=== PATIENT | female | born 1940 | race Caucasian/White ===

== ENCOUNTER → 2018-03-12 10:41 | Outpatient (CLI) | payer MEDICARE, BC, SELFPAY ==
--- NOTE | 2018-03-12 10:59 | DI.MG.S_ITS ---
Patient Name: TORI HEREDIA date: 1940 Sex: F Attending Physician: Gerard Indications: Date: 03/12/2018 10:59 At the request of: APRYL BEAR Procedure: MM screening mammo BI BILATERAL DIGITAL SCREENING MAMMOGRAM 3D/2D WITH CAD POST LUMPECTOMY: 03/12/2018 CLINICAL: Routine screening. Personal history of left breast cancer. Family history of breast cancer. Comparison is made to exams dated: 03/09/2017 mammogram, 02/23/2015 mammogram, and 02/25/2016 mammogram - [facility]. There are scattered fibroglandular elements in both breasts. Current study was also evaluated with a Computer Aided Detection (CAD) system. There are benign calcifications in both breasts. There also are post operative findings in the left breast. There is a linear scar marker overlying the upper outer left breast. No significant masses, calcifications, or other findings are seen in either breast. IMPRESSION: BENIGN There is no mammographic evidence of malignancy. A 1 year screening mammogram is recommended. This exam was interpreted at Station ID: [id number]. NOTE: For mammograms, a report in lay terms will be sent to the patient. Approximately 15% of breast malignancies will not be visualized mammographically. In the management of a palpable breast mass, a negative mammogram must not discourage biopsy of a clinically suspicious lesion. Electronically Signed By: Scott Morton M.D. ecl/:03/12/2018 20:46:44 letter sent: Normal Exam ACR BI-RADS Category 2: Benign Finding(s) 3342F
== END ==
PROVIDERS: PCP Physician Assistant Medical; Visit Provider Physician Assistant Medical
DX: Z12.31 Encounter for screening mammogram for malignant neoplasm of breast (principal); Z85.3 Personal history of malignant neoplasm of breast; Z80.3 Family history of malignant neoplasm of breast
CPT/HCPCS: 77063; 77067

== ENCOUNTER → 2019-03-13 09:12 | Outpatient (CLI) | payer MEDICARE, BC, SELFPAY ==
--- NOTE | 2019-03-13 | DI.MG.S_ITS ---
BILATERAL DIGITAL SCREENING MAMMOGRAM 3D/2D WITH CAD: 03/13/2019 CLINICAL: Routine screening. Personal history of left breast cancer. Family history of breast cancer. Comparison is made to exams dated: 03/12/2018 mammogram, 03/09/2017 mammogram, and 03/08/2016 mammogram - [facility]. The tissue of both breasts is heterogeneously dense. This may lower the sensitivity of mammography. Current study was also evaluated with a Computer Aided Detection (CAD) system. There are benign post operative findings in the left breast. There also are benign calcifications and lymph nodes in both breasts. No significant masses, calcifications, or other findings are seen in either breast. There has been no significant interval change. IMPRESSION: There is no mammographic evidence of malignancy. A 1 year screening mammogram is recommended. This exam was interpreted at Station ID: [id number]. NOTE: For mammograms, a report in lay terms will be sent to the patient. Approximately 15% of breast malignancies will not be visualized mammographically. In the management of a palpable breast mass, a negative mammogram must not discourage biopsy of a clinically suspicious lesion. Electronically Signed By: Ramsey das/thuy:03/13/2019 10:59:44 letter sent: Normal Exam ACR BI-RADS Category 2: Benign Finding(s) 3342F
== END ==
PROVIDERS: PCP Physician Assistant Medical; Visit Provider Physician Assistant Medical
DX: Z12.31 Encounter for screening mammogram for malignant neoplasm of breast (principal); Z85.3 Personal history of malignant neoplasm of breast; Z80.3 Family history of malignant neoplasm of breast
CPT/HCPCS: 77063; 77067

== ENCOUNTER 2020-04-02 16:55 | Emergency (ER) | payer MEDICARE, BC, SELFPAY ==
[2020-04-02] VITALS (19 sets, daily range): BP systolic 100–187; BP diastolic 72–96; PULSE 64–75; RESP 20–45; TEMP 37.1–37.2; O2SAT 93–98; BMI 29.1
--- NOTE | 2020-04-02 17:23 | DI.RAD.S_ITS ---
PROCEDURE: XR CHEST 1V INDICATIONS: SOB TECHNIQUE: One view of the chest was acquired. COMPARISON: None. FINDINGS: Surgical changes and devices: Left axillary surgical clips.. Lungs and pleura: Lungs are clear. No pleural effusions or pneumothorax. Mediastinum: Mediastinal contours appear normal. Heart size is normal. Bones and chest wall: No suspicious bony lesions. Overlying soft tissues appear unremarkable. IMPRESSION: No acute cardiopulmonary disease process. Dictated by: Alyssa Kennedy MD, PhD on 04/02/2020 at 17:50 Approved by: Alyssa Kennedy MD, PhD on 04/02/2020 at 17:51
--- NOTE | 2020-04-02 17:23 | ED.SOB ---
HPI - SOB/Dyspnea <NEY Noland - Last Filed: 04/02/20 20:52> General Chief Complaint: Shortness of Breath/Dyspnea Stated Complaint: SOB with Exertion Time Seen by Provider: 04/02/20 17:05 History of Present Illness HPI Narrative: 79yo female presents to the emergency department for ongoing dyspnea with exertion for the past 6 weeks. She states she walks the dog daily and noticed that she started to get increasing shortness of breath while walking. She was seen and evaluated by MARY Gee in sent to the emergency department for further workup due to T-wave inversion on EKG an oxygen saturation of 94% on RA in the clinic. Patient denies any history of cardiac or pulmonary etiology, denies blood clots in the past. Patient denies any other symptoms such as fevers, chest pain, abdominal pain, dizziness, syncope, nausea, vomiting, diarrhea, or any other concerns. Patient states she did smoke 25 years ago. Related Data Home Medications Medication Instructions Recorded Confirmed ASPIRIN (Linda Chewable Aspirin) 81 mg PO #0 05/30/12 CHOLECALCIFEROL (VITAMIN D) #0 05/30/12 CHOLECALCIFEROL (VITAMIN D) 2,000 iu PO Q DAY #0 05/30/12 CYANOCOBALAMIN (VITAMIN B-12) 1,000 mcg PO Q DAY #0 05/30/12 (Vitamin B-12) MAGNESIUM (#[facility] MAGNESIUM) 1,200 mg PO Q DAY #0 05/30/12 POTASSIUM (#POTASSIUM GLUCONATE) 80 mg PO Q DAY #0 05/30/12 Pyridoxine (#VITAMIN B6) 100 mg PO Q DAY #0 05/30/12 [FISH OIL] BID #0 05/30/12 [Super B complex] Q DAY #0 05/30/12 ascorbic acid (vitamin C) 500 mg PO QDAY #0 05/30/12 ascorbic acid (vitamin C) 500 mg PO QDAY #0 05/30/12 ascorbic acid (vitamin C) 500 mg PO QDAY #0 05/30/12 calcium carbonate-vitamin D3 800 mg PO 0800 #0 05/30/12 [Oyster Shell Calcium-Vit D3] Review of Systems <NEY Noland - Last Filed: 04/02/20 20:52> Review of Systems Narrative: REVIEW OF SYSTEMS: GENERAL: Denies fevers. HENT: No head trauma or hearing loss. EYES: No vision changes. CARDIOVASCULAR: No chest pain. RESPIRATORY: Reports shortness of breath, no cough. GASTROINTESTINAL: No nausea, vomiting, diarrhea, or constipation. MUSCULOSKELETAL: No weakness or injury. INTEGUMENTARY: No rash, lesions, or pruritus. NEURO: No memory loss, or confusion. Patient History <NEY Noland - Last Filed: 04/02/20 20:52> Medical History No significant medical problems (Acute) Social History Smoking Status: Never smoker Exam <NEY Noland - Last Filed: 04/02/20 20:52> Initial Vital Signs Initial Vital Signs: Vital Signs Temperature 98.7 F 04/02/20 17:08 Pulse Rate 69 04/02/20 17:08 Respiratory Rate 32 H 04/02/20 17:08 Blood Pressure 181/96 H 04/02/20 17:08 Pulse Oximetry 97 04/02/20 17:08 PHYSICAL EXAMINATION: GENERAL: Well groomed, alert, and cooperative. Answers questions promptly and appropriately. Vital signs noted. HENT: Normocephalic, atraumatic. Ear canals patent. Oral mucosa is pink and moist. EYES: Conjunctiva pink, sclera white, no periorbital swelling. CHEST: Normal to inspection and without deformities. CARDIOVASCULAR: S1 and S2 sounds normal. Regular rate and rhythm, no murmurs, clicks, or bruits. No pedal edema. RESPIRATORY: Normal respiratory rate, trachea midline, airway patent. No stridor, nasal flaring or accessory muscle use. Lungs are clear in all eisenberg without wheeze, rhonchi, or crackles. GASTROINTESTINAL: Bowel sounds normoactive. Abdomen is soft and non-tender. No organomegaly. MUSCULOSKELETAL: Normal gait and coordination. Equal tone and mass bilaterally. EXTREMITIES: CMS intact. Moves all extremities. SKIN: Warm, dry, soft, appropriate color for ethnicity. No lesions, rashes, or wounds. NEURO: Alert and Oriented X 3. Good coordination. No ataxia, or sensory deficits, or cognitive issues. PSYCH: Appropriate affect and mood. <Kailey Desir MD - Last Filed: 04/02/20 21:45> Initial Vital Signs Initial Vital Signs: Vital Signs Temperature 98.7 F 04/02/20 17:08 Pulse Rate 69 04/02/20 17:08 Respiratory Rate 32 H 04/02/20 17:08 Blood Pressure 181/96 H 04/02/20 17:08 Pulse Oximetry 97 04/02/20 17:08 Course <Bisi ClayNEY ferguson - Last Filed: 04/02/20 20:52> Course Course Narrative: 1839: Patient was updated on CT findings, instructed to decreased movement as much as possible. Instructed transfer less likely, patient consents. 1899: I spoke with Dr. Choi from interventional cardiology, discussed patient's symptoms, test results, and plan of care. Dr. Choi accepts transfer. Will contact hospitalist and adjunct nursing faculty. 1941: I spoke with Dr. Hernadez discussed CT findings, patient history, current medications and plan of care. accepts transfer. ALS transport called. Orders Ordered: ED Orders 04/02/20 17:12 Consult to Respiratory Therapy Evaluate & Treat EKG-12 Lead Stat 04/02/20 17:22 Complete Blood Count AUTO DIFF Stat Comprehensive Metabolic Panel Stat D Dimer Stat Lactate (Lactic Acid) Stat Magnesium Stat NT-proBNP (BNP-Adult 18+) Stat Partial Thromboplastin Time Stat Procalcitonin Stat Troponin & CK Cardiac Panel Stat 04/02/20 17:23 XR chest 1V Stat 04/02/20 18:04 CT angio chest PE protocol Stat 04/03/20 00:30 PTT [Partial Thromboplastin Time] Q6H 04/03/20 05:00 Hemoglobin and Hematocrit DAILY 04/03/20 06:30 PTT [Partial Thromboplastin Time] Q6H 04/03/20 12:30 PTT [Partial Thromboplastin Time] Q6H Heparin Sodium/Dextrose (Heparin Drip) 25,000 unit in 500 mls @ 24 mls/hr IV CONT MAILE; Protocol Last Admin: 04/02/20 19:15 Dose: 1,200 units/hr, 24 mls/hr Documented by: ROLAND Sodium Chloride (Normal Saline 0.9%) 1,000 mls @ 150 mls/hr IV CONT MAILE Last Admin: 04/02/20 20:44 Dose: 150 mls/hr Documented by: ROLAND Discontinued Medications Heparin Sodium (Porcine) (Heparin) 6,400 unit 80 unit/kg (6400 unit) IV NOW ONE Stop: 04/02/20 18:29 Last Admin: 04/02/20 19:15 Dose: 6,400 unit Documented by: ROLAND Consultations Consultation #1: Patient staffed with Dr. Pelayo and Dr. Desir discussed test, test results, plan of care. Vital Signs Vital signs: Vital Signs - 8 hr 04/02/20 17:08 04/02/20 17:26 04/02/20 17:30 Temperature 98.7 F 98.9 F Pulse Rate 69 67 Respiratory Rate 32 H 23 Blood Pressure 181/96 H 150/85 H Pulse Oximetry 97 94 04/02/20 18:00 04/02/20 18:30 04/02/20 18:31 Temperature Pulse Rate 70 69 Respiratory Rate 22 23 Blood Pressure 100/72 172/94 H Pulse Oximetry 93 93 04/02/20 19:00 04/02/20 19:01 04/02/20 19:30 Temperature Pulse Rate 73 75 67 Respiratory Rate 30 H 27 H 23 Blood Pressure Pulse Oximetry 98 98 98 04/02/20 19:31 04/02/20 20:00 04/02/20 20:01 Temperature Pulse Rate 67 68 69 Respiratory Rate 25 H 23 25 H Blood Pressure 166/84 H 165/89 H Pulse Oximetry 98 97 97 04/02/20 20:30 04/02/20 21:00 Temperature Pulse Rate 67 67 Respiratory Rate 23 23 Blood Pressure 187/91 H Pulse Oximetry 97 98 <Kailey Desir MD - Last Filed: 04/02/20 21:45> Orders Ordered: ED Orders 04/02/20 17:12 Consult to Respiratory Therapy Evaluate & Treat EKG-12 Lead Stat 04/02/20 17:22 Complete Blood Count AUTO DIFF Stat Comprehensive Metabolic Panel Stat D Dimer Stat Lactate (Lactic Acid) Stat Magnesium Stat NT-proBNP (BNP-Adult 18+) Stat Partial Thromboplastin Time Stat Procalcitonin Stat Troponin & CK Cardiac Panel Stat 04/02/20 17:23 XR chest 1V Stat 04/02/20 18:04 CT angio chest PE protocol Stat 04/03/20 00:30 PTT [Partial Thromboplastin Time] Q6H 04/03/20 05:00 Hemoglobin and Hematocrit DAILY 04/03/20 06:30 PTT [Partial Thromboplastin Time] Q6H 04/03/20 12:30 PTT [Partial Thromboplastin Time] Q6H Heparin Sodium/Dextrose (Heparin Drip) 25,000 unit in 500 mls @ 24 mls/hr IV CONT MAILE; Protocol Last Admin: 04/02/20 19:15 Dose: 1,200 units/hr, 24 mls/hr Documented by: ROLAND Sodium Chloride (Normal Saline 0.9%) 1,000 mls @ 150 mls/hr IV CONT MAILE Last Admin: 04/02/20 20:44 Dose: 150 mls/hr Documented by: ROLAND Discontinued Medications Heparin Sodium (Porcine) (Heparin) 6,400 unit 80 unit/kg (6400 unit) IV NOW ONE Stop: 04/02/20 18:29 Last Admin: 04/02/20 19:15 Dose: 6,400 unit Documented by: ROLAND Vital Signs Vital signs: Vital Signs - 8 hr 04/02/20 17:08 04/02/20 17:26 04/02/20 17:30 Temperature 98.7 F 98.9 F Pulse Rate 69 67 Respiratory Rate 32 H 23 Blood Pressure 181/96 H 150/85 H Pulse Oximetry 97 94 04/02/20 18:00 04/02/20 18:30 04/02/20 18:31 Temperature Pulse Rate 70 69 Respiratory Rate 22 23 Blood Pressure 100/72 172/94 H Pulse Oximetry 93 93 04/02/20 19:00 04/02/20 19:01 04/02/20 19:30 Temperature Pulse Rate 73 75 67 Respiratory Rate 30 H 27 H 23 Blood Pressure Pulse Oximetry 98 98 98 04/02/20 19:31 04/02/20 20:00 04/02/20 20:01 Temperature Pulse Rate 67 68 69 Respiratory Rate 25 H 23 25 H Blood Pressure 166/84 H 165/89 H Pulse Oximetry 98 97 97 04/02/20 20:30 04/02/20 21:00 Temperature Pulse Rate 67 67 Respiratory Rate 23 23 Blood Pressure 187/91 H Pulse Oximetry 97 98 MDM - SOB/Dyspnea <NEY Noland - Last Filed: 04/02/20 20:52> Medical Records Attestation: I reviewed the patient's medical records. Lab Data Attestation: I reviewed the patient's lab results. Result diagrams: 04/02/20 17:22 04/02/20 17:22 Labs: Lab Results 04/02/20 04/02/20 04/02/20 Range/Units 17:22 17:22 17:22 WBC 8.2 (4.5-11.0) X10^3/uL RBC 4.12 (4.0-5.2) X10^6/uL Hgb 13.3 (12.0-16.0) g/dL Hct 38.9 (36-46) % MCV 94.4 (80-100) fL MCH 32.2 (26-34) PG MCHC 34.2 (30-36) % RDW 13.6 (11.6-14.8) % Plt Count 213 (150-400) X10^3/uL Neut % (Auto) 73.1 (50-75) % Lymph % (Auto) 13.3 L (25-40) % Mcmullen % (Auto) 12.6 (3-14) % Eos % (Auto) 0.4 L (2-4) % Baso % (Auto) 0.6 (0-2) % Neut # (Auto) 6000 (2317-6309) /uL Lymph # (Auto) 1100 (3412-4691) /uL Mcmullen # (Auto) 1000 H (0-900) /uL Eos # (Auto) 0 (0-450) /uL Baso # (Auto) 100 (0-100) /uL APTT (26.4-36.2) SECONDS D-Dimer (<230) ng/mL Sodium 136 L (137-145) mmol/L Potassium 4.5 (3.4-5.1) mmol/L Chloride 107 (98-107) mmol/L Carbon Dioxide 23 (22-32) mmol/L BUN 21 H (7-17) mg/dL Creatinine 0.47 L (0.52-1.04) mg/dL Estimated GFR > 60.0 (>60) mL/min BUN/Creatinine Ratio 44.7 H (6-22) Glucose 107 (80-110) mg/dL Lactate (0.7-2.1) mmol/L Calcium 9.4 (8.4-10.2) mg/dL Magnesium 1.9 (1.6-2.3) mg/dL Total Bilirubin 0.6 (0.2-1.3) mg/dL AST 48 H (14-36) IU/L ALT 50 H (<35) IU/L Alkaline Phosphatase 73 (38-126) U/L Total Creatine Kinase 30 (30-135) U/L CK-MB (CK-2) TNP CK-MB (CK-2) Rel Index TNP Troponin I 0.015 (0.01-0.034) ng/mL NT-Pro-B Natriuret Pep (<450) pg/mL Total Protein 7.1 (6.3-8.2) g/dL Albumin 3.7 (3.5-5.0) g/dL Globulin 3.4 (1.7-4.1) g/dL Albumin/Globulin Ratio 1.1 (1.0-2.8) Procalcitonin < 0.05 (<0.5) ng/mL COVID-19 PCR (Negative) 04/02/20 04/02/20 04/02/20 Range/Units 17:22 17:22 17:22 WBC (4.5-11.0) X10^3/uL RBC (4.0-5.2) X10^6/uL Hgb (12.0-16.0) g/dL Hct (36-46) % MCV (80-100) fL MCH (26-34) PG MCHC (30-36) % RDW (11.6-14.8) % Plt Count (150-400) X10^3/uL Neut % (Auto) (50-75) % Lymph % (Auto) (25-40) % Mcmullen % (Auto) (3-14) % Eos % (Auto) (2-4) % Baso % (Auto) (0-2) % Neut # (Auto) (4476-8227) /uL Lymph # (Auto) (6689-0435) /uL Mcmullen # (Auto) (0-900) /uL Eos # (Auto) (0-450) /uL Baso # (Auto) (0-100) /uL APTT (26.4-36.2) SECONDS D-Dimer 2237 H (<230) ng/mL Sodium (137-145) mmol/L Potassium (3.4-5.1) mmol/L Chloride (98-107) mmol/L Carbon Dioxide (22-32) mmol/L BUN (7-17) mg/dL Creatinine (0.52-1.04) mg/dL Estimated GFR (>60) mL/min BUN/Creatinine Ratio (6-22) Glucose (80-110) mg/dL Lactate 0.8 (0.7-2.1) mmol/L Calcium (8.4-10.2) mg/dL Magnesium (1.6-2.3) mg/dL Total Bilirubin (0.2-1.3) mg/dL AST (14-36) IU/L ALT (<35) IU/L Alkaline Phosphatase (38-126) U/L Total Creatine Kinase (30-135) U/L CK-MB (CK-2) CK-MB (CK-2) Rel Index Troponin I (0.01-0.034) ng/mL NT-Pro-B Natriuret Pep 1740 H (<450) pg/mL Total Protein (6.3-8.2) g/dL Albumin (3.5-5.0) g/dL Globulin (1.7-4.1) g/dL Albumin/Globulin Ratio (1.0-2.8) Procalcitonin (<0.5) ng/mL COVID-19 PCR (Negative) 04/02/20 04/02/20 Range/Units 17:22 18:11 WBC (4.5-11.0) X10^3/uL RBC (4.0-5.2) X10^6/uL Hgb (12.0-16.0) g/dL Hct (36-46) % MCV (80-100) fL MCH (26-34) PG MCHC (30-36) % RDW (11.6-14.8) % Plt Count (150-400) X10^3/uL Neut % (Auto) (50-75) % Lymph % (Auto) (25-40) % Mcmullen % (Auto) (3-14) % Eos % (Auto) (2-4) % Baso % (Auto) (0-2) % Neut # (Auto) (1535-4872) /uL Lymph # (Auto) (2689-2218) /uL Mcmullen # (Auto) (0-900) /uL Eos # (Auto) (0-450) /uL Baso # (Auto) (0-100) /uL APTT 32 (26.4-36.2) SECONDS D-Dimer (<230) ng/mL Sodium (137-145) mmol/L Potassium (3.4-5.1) mmol/L Chloride (98-107) mmol/L Carbon Dioxide (22-32) mmol/L BUN (7-17) mg/dL Creatinine (0.52-1.04) mg/dL Estimated GFR (>60) mL/min BUN/Creatinine Ratio (6-22) Glucose (80-110) mg/dL Lactate (0.7-2.1) mmol/L Calcium (8.4-10.2) mg/dL Magnesium (1.6-2.3) mg/dL Total Bilirubin (0.2-1.3) mg/dL AST (14-36) IU/L ALT (<35) IU/L Alkaline Phosphatase (38-126) U/L Total Creatine Kinase (30-135) U/L CK-MB (CK-2) CK-MB (CK-2) Rel Index Troponin I (0.01-0.034) ng/mL NT-Pro-B Natriuret Pep (<450) pg/mL Total Protein (6.3-8.2) g/dL Albumin (3.5-5.0) g/dL Globulin (1.7-4.1) g/dL Albumin/Globulin Ratio (1.0-2.8) Procalcitonin (<0.5) ng/mL COVID-19 PCR Negative (Negative) ECG Data Interpretation: 1724: Sinus rhythm. Rate 67, KY interval 156, QTC 492. T-wave inversion noted in Lead III, V1, V3-V6 which is new from prior EKG in 2010. EKG also viewed by Dr. Desir per protocol. [facility] Narrative Medical decision making narrative: 79-year-old female presenting to the emergency department for exertional dyspnea from the clinic. Patient presented and normal sinus rhythm in anterioal-septal T-wave inversions and elevated D-dimer. Patient was mildly hypoxic at 93% on room air. Chest CT was ordered due to D-dimer results revealing a large saddle PE. Heparin bolus was administered and heparin drip was started. Interventional Cardiology was consulted, Dr. Choi accepts for transfer. Also, I spoke with Dr. Phillips, the hospitalist who accepts. Patient was encouraged to decrease excessive activity. Patient remained hemodynamically stable, discussed transfer, patient accepts. All questions answered. 2050: Patient awaiting ALS transfer, Report was given to Dr. Desir as patient will remain in the department for the next few hours. <Kailey Desir MD - Last Filed: 04/02/20 21:45> Medical Records Attestation: I reviewed the patient's medical records. Lab Data Attestation: I reviewed the patient's lab results. Labs: Lab Results 04/02/20 04/02/20 04/02/20 Range/Units 17:22 17:22 17:22 WBC 8.2 (4.5-11.0) X10^3/uL RBC 4.12 (4.0-5.2) X10^6/uL Hgb 13.3 (12.0-16.0) g/dL Hct 38.9 (36-46) % MCV 94.4 (80-100) fL MCH 32.2 (26-34) PG MCHC 34.2 (30-36) % RDW 13.6 (11.6-14.8) % Plt Count 213 (150-400) X10^3/uL Neut % (Auto) 73.1 (50-75) % Lymph % (Auto) 13.3 L (25-40) % Mcmullen % (Auto) 12.6 (3-14) % Eos % (Auto) 0.4 L (2-4) % Baso % (Auto) 0.6 (0-2) % Neut # (Auto) 6000 (5292-5430) /uL Lymph # (Auto) 1100 (1181-5233) /uL Mcmullen # (Auto) 1000 H (0-900) /uL Eos # (Auto) 0 (0-450) /uL Baso # (Auto) 100 (0-100) /uL APTT (26.4-36.2) SECONDS D-Dimer (<230) ng/mL Sodium 136 L (137-145) mmol/L Potassium 4.5 (3.4-5.1) mmol/L Chloride 107 (98-107) mmol/L Carbon Dioxide 23 (22-32) mmol/L BUN 21 H (7-17) mg/dL Creatinine 0.47 L (0.52-1.04) mg/dL Estimated GFR > 60.0 (>60) mL/min BUN/Creatinine Ratio 44.7 H (6-22) Glucose 107 (80-110) mg/dL Lactate (0.7-2.1) mmol/L Calcium 9.4 (8.4-10.2) mg/dL Magnesium 1.9 (1.6-2.3) mg/dL Total Bilirubin 0.6 (0.2-1.3) mg/dL AST 48 H (14-36) IU/L ALT 50 H (<35) IU/L Alkaline Phosphatase 73 (38-126) U/L Total Creatine Kinase 30 (30-135) U/L CK-MB (CK-2) TNP CK-MB (CK-2) Rel Index TNP Troponin I 0.015 (0.01-0.034) ng/mL NT-Pro-B Natriuret Pep (<450) pg/mL Total Protein 7.1 (6.3-8.2) g/dL Albumin 3.7 (3.5-5.0) g/dL Globulin 3.4 (1.7-4.1) g/dL Albumin/Globulin Ratio 1.1 (1.0-2.8) Procalcitonin < 0.05 (<0.5) ng/mL COVID-19 PCR (Negative) 04/02/20 04/02/20 04/02/20 Range/Units 17:22 17:22 17:22 WBC (4.5-11.0) X10^3/uL RBC (4.0-5.2) X10^6/uL Hgb (12.0-16.0) g/dL Hct (36-46) % MCV (80-100) fL MCH (26-34) PG MCHC (30-36) % RDW (11.6-14.8) % Plt Count (150-400) X10^3/uL Neut % (Auto) (50-75) % Lymph % (Auto) (25-40) % Mcmullen % (Auto) (3-14) % Eos % (Auto) (2-4) % Baso % (Auto) (0-2) % Neut # (Auto) (8967-6870) /uL Lymph # (Auto) (5922-9218) /uL Mcmullen # (Auto) (0-900) /uL Eos # (Auto) (0-450) /uL Baso # (Auto) (0-100) /uL APTT (26.4-36.2) SECONDS D-Dimer 2237 H (<230) ng/mL Sodium (137-145) mmol/L Potassium (3.4-5.1) mmol/L Chloride (98-107) mmol/L Carbon Dioxide (22-32) mmol/L BUN (7-17) mg/dL Creatinine (0.52-1.04) mg/dL Estimated GFR (>60) mL/min BUN/Creatinine Ratio (6-22) Glucose (80-110) mg/dL Lactate 0.8 (0.7-2.1) mmol/L Calcium (8.4-10.2) mg/dL Magnesium (1.6-2.3) mg/dL Total Bilirubin (0.2-1.3) mg/dL AST (14-36) IU/L ALT (<35) IU/L Alkaline Phosphatase (38-126) U/L Total Creatine Kinase (30-135) U/L CK-MB (CK-2) CK-MB (CK-2) Rel Index Troponin I (0.01-0.034) ng/mL NT-Pro-B Natriuret Pep 1740 H (<450) pg/mL Total Protein (6.3-8.2) g/dL Albumin (3.5-5.0) g/dL Globulin (1.7-4.1) g/dL Albumin/Globulin Ratio (1.0-2.8) Procalcitonin (<0.5) ng/mL COVID-19 PCR (Negative) 04/02/20 04/02/20 Range/Units 17:22 18:11 WBC (4.5-11.0) X10^3/uL RBC (4.0-5.2) X10^6/uL Hgb (12.0-16.0) g/dL Hct (36-46) % MCV (80-100) fL MCH (26-34) PG MCHC (30-36) % RDW (11.6-14.8) % Plt Count (150-400) X10^3/uL Neut % (Auto) (50-75) % Lymph % (Auto) (25-40) % Mcmullen % (Auto) (3-14) % Eos % (Auto) (2-4) % Baso % (Auto) (0-2) % Neut # (Auto) (1390-0617) /uL Lymph # (Auto) (6824-3870) /uL Mcmullen # (Auto) (0-900) /uL Eos # (Auto) (0-450) /uL Baso # (Auto) (0-100) /uL APTT 32 (26.4-36.2) SECONDS D-Dimer (<230) ng/mL Sodium (137-145) mmol/L Potassium (3.4-5.1) mmol/L Chloride (98-107) mmol/L Carbon Dioxide (22-32) mmol/L BUN (7-17) mg/dL Creatinine (0.52-1.04) mg/dL Estimated GFR (>60) mL/min BUN/Creatinine Ratio (6-22) Glucose (80-110) mg/dL Lactate (0.7-2.1) mmol/L Calcium (8.4-10.2) mg/dL Magnesium (1.6-2.3) mg/dL Total Bilirubin (0.2-1.3) mg/dL AST (14-36) IU/L ALT (<35) IU/L Alkaline Phosphatase (38-126) U/L Total Creatine Kinase (30-135) U/L CK-MB (CK-2) CK-MB (CK-2) Rel Index Troponin I (0.01-0.034) ng/mL NT-Pro-B Natriuret Pep (<450) pg/mL Total Protein (6.3-8.2) g/dL Albumin (3.5-5.0) g/dL Globulin (1.7-4.1) g/dL Albumin/Globulin Ratio (1.0-2.8) Procalcitonin (<0.5) ng/mL COVID-19 PCR Negative (Negative) Imaging Data CT scan - chest: Radiologist's Impression: PROCEDURE: CT ANGIO CHEST PE PROTOCOL INDICATIONS: High D-dimer, SOB TECHNIQUE: After the administration of intravenous contrast, 2 mm thick sections acquired from the pulmonary apices to the posterior costophrenic angles. 3-dimensional maximum intensity projection (MIP) coronal and sagittal reformats were then acquired through the thorax. For radiation dose reduction, the following was used: automated exposure control, adjustment of mA and/or kV according to patient size. COMPARISON: None. FINDINGS: Image quality: Excellent. Pulmonary arteries: Large bilateral central saddle pulmonary emboli are noted which extend into the lobar and segmental arteries. Lungs and pleura: 1.3 centimeter ground-glass opacity noted in the anterior aspect of the right upper lobe. No pleural effusions or pneumothorax. Central and peripheral airways are patent. Mediastinum: Heart size is normal, without pericardial effusion. RV/LV ratio is 1.8 compatible with right heart strain. Atherosclerotic calcifications are noted in the aorta, great vessels and the coronary vasculature.No mediastinal or hilar adenopathy. Thoracic aorta is normal in caliber and enhancement. Esophagus is normal in caliber, without hiatal hernia. Bones and chest wall: No suspicious bony lesions. Ribs and thoracic spine appear intact throughout. Thyroid gland is within normal limits. No axillary or supraclavicular adenopathy. Abdomen: Large left renal cyst. Probable 2.2 centimeter hepatic cyst. 2.3 centimeter gallstone in the gallbladder neck. IMPRESSION: 1. 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 2. CT evidence of right heart strain. 3. 1.3 centimeter ground-glass opacity in the right upper lobe. Recommend repeat CT scan of the chest in 3 months. 4. Atherosclerosis including the coronary vasculature. 5. Cholelithiasis. Findings discussed with NEY Noland on April 02, 2020 at 6:39 p.m.. Dictated by: Alyssa Kennedy MD, PhD on 04/02/2020 at 18:31 ECG Data Attestation: I personally reviewed and interpreted this ECG as follows: Interpretation: Sinus rhythm at a rate of 67 T-wave inversions anterior laterally without St elevation <Kailey Desir MD - Last Filed: 04/02/20 21:45> Critical Care Time Critical Care Time: Yes Total Critical Care Time: 33 Attestation: Critical care time is separate from other billable procedures. This critical care time includes consultation with family and other consulting doctors, review of records, and interpretation of data from labs, EKGs and imaging as well as managements of acute saddle pulmonary embolism with concern for respiraoty and cardiac failure. Discharge Plan Departure Patient Disposition: [facility] Clinical Impression: Acute saddle pulmonary embolism Qualifiers: Acute cor pulmonale presence: unspecified Qualified Code(s): I26.92 - Saddle embolus of pulmonary artery without acute cor pulmonale Prescriptions: No Action calcium carbonate-vitamin D3 [Oyster Shell Calcium-Vit D3] 1,250 MG/200 IU tablet 800 mg PO 0800 Qty: 0 RF: 0 CYANOCOBALAMIN (VITAMIN B-12) (Vitamin B-12) 1,000 mcg PO Q DAY Qty: 0 RF: 0 MAGNESIUM (#[facility] MAGNESIUM) 1,200 mg PO Q DAY Qty: 0 RF: 0 Pyridoxine (#VITAMIN B6) 100 mg PO Q DAY Qty: 0 RF: 0 [FISH OIL] BID Qty: 0 RF: 0 [Super B complex] Q DAY Qty: 0 RF: 0 POTASSIUM (#POTASSIUM GLUCONATE) 80 mg PO Q DAY Qty: 0 RF: 0 CHOLECALCIFEROL (VITAMIN D) 2,000 iu PO Q DAY Qty: 0 RF: 0 CHOLECALCIFEROL (VITAMIN D) Qty: 0 RF: 0 ascorbic acid (vitamin C) 500 MG tablet 500 mg PO QDAY Qty: 0 RF: 0 ascorbic acid (vitamin C) 500 MG tablet 500 mg PO QDAY Qty: 0 RF: 0 ASPIRIN (Linda Chewable Aspirin) 81 mg PO Qty: 0 RF: 0 ascorbic acid (vitamin C) 500 MG tablet 500 mg PO QDAY Qty: 0 RF: 0 Referrals: Aminah Gee PA-C [Primary Care Provider] - <Kailey Desir MD - Last Filed: 04/02/20 21:45> Cosign ED Attending Cosignature Attestation: I was immediately available in the department for consultation throughout this patient's visit. I independently examined the patient as well as imaging studies and I agree with documentation as above. Kailey Desir MD
[2020-04-02 17:29] LABS: Add Manual Diff / Slide Review NO; Basophils Absolute Auto 100 /uL (0-100); Basophils Percent Auto 0.6 % (0-2); Eosinophils Absolute Auto 0 /uL (0-450); Eosinophils Percent Auto 0.4 % (2-4); Hematocrit 38.9 % (36-46); Hemoglobin 13.3 g/dL (12.0-16.0); Lymphocytes Absolute Auto 1100 /uL (1100-4500); Lymphocytes Percent Auto 13.3 % (25-40); Mean Corpuscular HGB Conc 34.2 % (30-36); Mean Corpuscular Hemoglobin 32.2 PG (26-34); Mean Corpuscular Volume 94.4 fL (80-100); Monocytes Absolute Auto 1000 /uL (0-900); Monocytes Percent Auto 12.6 % (3-14); Neutrophils Absolute Auto 6000 /uL (1500-7000); Neutrophils Percent Auto 73.1 % (50-75); Platelet Count 213 X10^3/uL (150-400); Red Blood Cell Count 4.12 X10^6/uL (4.0-5.2); Red Cell Distribution Width 13.6 % (11.6-14.8); White Blood Cell Count 8.2 X10^3/uL (4.5-11.0)
[2020-04-02 17:41] LABS: Lactate (Lactic Acid) 0.8 mmol/L (0.7-2.1)
[2020-04-02 17:42] LABS: Alanine Aminotransferase 50 IU/L (<35); Albumin 3.7 g/dL (3.5-5.0); Albumin Globulin Ratio 1.1 (1.0-2.8); Alkaline Phosphatase 73 U/L (38-126); Aspartate Aminotransferase 48 IU/L (14-36); BUN Creatinine Ratio 44.7 (6-22); Bilirubin Total 0.6 mg/dL (0.2-1.3); Blood Urea Nitrogen 21 mg/dL (7-17); Calcium 9.4 mg/dL (8.4-10.2); Carbon Dioxide 23 mmol/L (22-32); Chloride 107 mmol/L (98-107); Creatine Kinase 30 U/L (30-135); Estimated Glomerular Filt Rate > 60.0 mL/min (>60); Globulin 3.4 g/dL (1.7-4.1); Glucose 107 mg/dL (80-110); HEMOLYSIS 47 (0-50); Magnesium 1.9 mg/dL (1.6-2.3); Potassium 4.5 mmol/L (3.4-5.1); Sodium 136 mmol/L (137-145); Total Protein 7.1 g/dL (6.3-8.2)
[2020-04-02 17:49] LABS: D Dimer 2237 ng/mL (<230)
[2020-04-02 17:50] LABS: NT-proBNP (BNP-Adult 18+) 1740 pg/mL (<450)
[2020-04-02 17:53] LABS: Troponin I 0.015 ng/mL (0.01-0.034)
[2020-04-02 18:00] LABS: Procalcitonin < 0.05 ng/mL (<0.5)
--- NOTE | 2020-04-02 18:04 | DI.CT.S_ITS ---
PROCEDURE: CT ANGIO CHEST PE PROTOCOL INDICATIONS: High D-dimer, SOB TECHNIQUE: After the administration of intravenous contrast, 2 mm thick sections acquired from the pulmonary apices to the posterior costophrenic angles. 3-dimensional maximum intensity projection (MIP) coronal and sagittal reformats were then acquired through the thorax. For radiation dose reduction, the following was used: automated exposure control, adjustment of mA and/or kV according to patient size. COMPARISON: None. FINDINGS: Image quality: Excellent. Pulmonary arteries: Large bilateral central saddle pulmonary emboli are noted which extend into the lobar and segmental arteries. Lungs and pleura: 1.3 centimeter ground-glass opacity noted in the anterior aspect of the right upper lobe. No pleural effusions or pneumothorax. Central and peripheral airways are patent. Mediastinum: Heart size is normal, without pericardial effusion. RV/LV ratio is 1.8 compatible with right heart strain. Atherosclerotic calcifications are noted in the aorta, great vessels and the coronary vasculature.No mediastinal or hilar adenopathy. Thoracic aorta is normal in caliber and enhancement. Esophagus is normal in caliber, without hiatal hernia. Bones and chest wall: No suspicious bony lesions. Ribs and thoracic spine appear intact throughout. Thyroid gland is within normal limits. No axillary or supraclavicular adenopathy. Abdomen: Large left renal cyst. Probable 2.2 centimeter hepatic cyst. 2.3 centimeter gallstone in the gallbladder neck. IMPRESSION: 1. 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 2. CT evidence of right heart strain. 3. 1.3 centimeter ground-glass opacity in the right upper lobe. Recommend repeat CT scan of the chest in 3 months. 4. Atherosclerosis including the coronary vasculature. 5. Cholelithiasis. Findings discussed with NEY Noland on April 02, 2020 at 6:39 p.m.. Dictated by: Alyssa Kennedy MD, PhD on 04/02/2020 at 18:31 Approved by: Alyssa Kennedy MD, PhD on 04/02/2020 at 18:39
[2020-04-02 18:44] LABS: PTT Partial Thromboplastin Tim 32 SECONDS (26.4-36.2)
[2020-04-02] MEDS: HEPARIN DRIP 25,000 UNIT/500 ML IV.SOLN 24 UNIT IV (18:51)
[2020-04-02] MEDS: HEPARIN 5,000 UNIT/ML VIAL 6400 UNIT IV (18:51)
[2020-04-02 19:18] LABS: COVID19 -Nasal RAPID Negative (Negative)
[2020-04-02] MEDS: SODIUM CHLORIDE 0.9% 1,000 ML 150 ML IV (20:44)
--- NOTE | 2020-04-27 12:21 | PC.NURSE ---
Late Entry: Pt left department with heparin infusing with a department stop time at 2330.
== END 2020-04-02 23:36 | disposition short-term general hospital (02) ==
PROVIDERS: Emergency Provider Nurse Practitioner; PCP Physician Assistant Medical
DX: I26.92 Saddle embolus of pulmonary artery without acute cor pulmonale (principal); R09.02 Hypoxemia; R79.89 Other specified abnormal findings of blood chemistry
CPT/HCPCS: 36415; 71045; 71275; 80053; 82550; 83605; 83735; 83880; 84145; 84484; 85025; 85379; 85730; 87635; 93005; 96365; 96366; 96375; 99285; 99291; J1644; Q9967

== ENCOUNTER → 2020-05-01 10:39 | Outpatient (CLI) | payer MEDICARE, BC, SELFPAY ==
--- NOTE | 2020-05-01 10:48 | DI.MG.S_ITS ---
Patient Name: TORI HEREDIA date: 1940 Sex: F Attending Physician: Gerard Indications: Date: 05/01/2020 10:43 At the request of: APRYL BEAR Procedure: MM screening mammo BI BILATERAL DIGITAL SCREENING MAMMOGRAM 3D/2D WITH CAD POST LUMPECTOMY: 05/01/2020 CLINICAL: Routine screening. Personal history of left breast cancer. Family history of breast cancer. Comparison is made to exams dated: 03/13/2019 mammogram, 03/12/2018 mammogram, and 03/09/2017 mammogram - [facility]. The tissue of both breasts is heterogeneously dense. This may lower the sensitivity of mammography. Current study was also evaluated with a Computer Aided Detection (CAD) system. There are benign calcifications in both breasts. There also are benign post operative findings in the left breast. No significant masses, calcifications, or other findings are seen in either breast. There has been no significant interval change. IMPRESSION: BENIGN There is no mammographic evidence of malignancy. A 1 year screening mammogram is recommended. This exam was interpreted at Station ID: [id number]. NOTE: For mammograms, a report in lay terms will be sent to the patient. Approximately 15% of breast malignancies will not be visualized mammographically. In the management of a palpable breast mass, a negative mammogram must not discourage biopsy of a clinically suspicious lesion. Electronically Signed By: Erlin copeland/thuy:05/01/2020 11:25:36 letter sent: Normal Exam ACR BI-RADS Category 2: Benign Finding(s) 3342F Continued Report - Page 2 of 2 Patient Name: TORI HEREDIA date: 1940 Sex: F Attending Physician: Gerard Indications: Date: 05/01/2020 10:43 At the request of: APRYL BEAR Procedure: MM screening mammo BI
== END ==
PROVIDERS: PCP Physician Assistant Medical; Referring Provider Physician Assistant Medical; Visit Provider Physician Assistant Medical
DX: Z12.31 Encounter for screening mammogram for malignant neoplasm of breast (principal); Z85.3 Personal history of malignant neoplasm of breast; Z80.3 Family history of malignant neoplasm of breast
CPT/HCPCS: 77063; 77067

== ENCOUNTER → 2020-05-29 07:50 | Outpatient (CLI) | payer MEDICARE, BC, SELFPAY ==
--- NOTE | 2020-05-29 | DI.ECHO.S_ITS ---
[place] +---------+ Hospital +---------+ : : [address] : [place] : : : : [id number] : : : : Phone: [phone]+ Echocardiogram Report + + :Name: TORI HEREDIA Study Date: 05/29/2020 Height: 66 in : :[facility] Exam Location: [facility] Weight: 175 lb : : Gender: Female BSA: 1.9 m2 : :: 1940 Age: 79 yrs BP: 158/85 mmHg: :Reason For Study: Pulmonary- Embolism : :Ordering Physician: Aminah : :Gerard Performed By: Chapis Page : + + Interpretation Summary Normal sinus rhythm. Normal LV size; mild concentric LVH; normal wall motion and LV systolic function. EF is 60-65%. Severe biatrial enlargement. Mild RV enlargement with borderline reduced RV function. There is moderate central tricuspid regurgitation. Estimated PA systolic pressure is 78 mm Hg assuming RA pressure of 8 mm Hg. Mildly dilated ascending aorta (measuring 4.2 cm diameter) Compared to prior study 04/03/2020 RV dilation is less severe. RV dilation is down from moderate to mild. PA systolic pressure is up from 66 mm Hg to 78 mm Hg. Procedure: A two-dimensional transthoracic echocardiogram with color flow and Doppler was performed. The study quality was technically adequate. Comparison is made with the echocardiogram of 04/03/2020. The patient was in normal sinus rhythm during the exam. Left Ventricle: The left ventricle is normal in size. Left ventricular wall thickness is mildly increased. Trabeculae near apex are visualized. No thrombus is observed. The ejection fraction is estimated to be 60-65%. There are no focal wall motion abnormalities. Paradoxical septal motion is consistent with right ventricular volume overload. Diastolic parameters suggest a relaxation abnormality of the left ventricle, consistent with probable normal filling pressures. Right Ventricle: The right ventricle is mildly dilated. Right ventricular systolic function is borderline reduced. Atria: Both atria are severely dilated. Both atria have significantly increased in size since the prior echo exam. There is no Doppler evidence for an interatrial shunt. Mitral Valve: The mitral valve leaflets appear mildly thickened, but open well. There is mild mitral annular calcification. There is trace mitral regurgitation. Aortic Valve: The aortic valve is trileaflet. The aortic valve opens well. There is trace aortic regurgitation. Tricuspid Valve: The tricuspid valve is normal. There is mild to moderate tricuspid regurgitation. The right ventricular systolic pressure is estimated to be at least 78 mmHg based on an estimated right atrial pressure of 8 mm Hg. Compared to the prior echo exam, there has been an increase in the severity of pulmonary hypertension. There is severe pulmonary hypertension. Pulmonic Valve: The pulmonic valve is not well seen, but is grossly normal. There is trace pulmonic regurgitation. Great Vessels: The aortic root is normal size. The ascending aorta is moderately enlarged. The pulmonary artery is not well visualized, but is probably normal size. The IVC is dilated (diameter is greater than 2.1 cm) yet it collapses greater than 50% with a sniff. This suggests a right atrial pressure of 8 mm Hg. Pericardium/ Pleura There is no pericardial effusion. There is no pleural effusion. MMode/2D Measurements & Calculations LVIDd: 5.0 cm LVOT diam: 2.2 cm LVIDs: 2.9 cm Ao root diam: 3.8 cm FS: 42.0 % asc Aorta Diam: 4.2 cm IVSd: 0.78 cm LVPWd: 1.1 cm LV castañeda. diameter/BSA (cm/m^2): 2.6 LV sys. diameter/BSA (cm/m^2): 1.5 LA A2 area: 33.1 cm2 RA long axis: 5.9 cm LA A4 area: 25.3 cm2 RA area: 26.9 cm2 LA length (vol): 6.1 cm RA vol: 104.4 ml LA vol: 115.7 ml RA : 55.3 ml/m2 LA vol index: 61.2 ml/m2 IVC diam: 2.2 cm RVD1 (basal): 4.7 cm RVD2 (mid): 3.9 cm TAPSE: 1.8 cm Doppler Measurements & Calculations Ao V2 max: 128.7 cm/sec LVOT Max Sagar: 101.4 cm/sec Ao V2 mean: 87.0 cm/sec LV V1 max P.1 mmHg Ao max P.6 mmHg LV V1 VTI: 25.2 cm Ao mean P.4 mmHg ALISHA(I,D): 3.2 cm2 Ao V2 VTI: 29.9 cm ALISHA(V,D): 3.0 cm2 sev ratio: 0.84 ALISHA indexed to BSA (cm^2/m^2): 1.7 MV E max sagar: 69.5 cm/sec TR max sagar: 417.4 cm/sec MV A max sagar: 112.6 cm/sec TR max P.7 mmHg MV E/A: 0.62 PA V2 max: 87.6 cm/sec Med Peak E' Sagar: 4.1 cm/sec PA V2 mean: 54.0 cm/sec E/E' med: 16.9 PA mean P.3 mmHg Lat Peak E' Sagar: 6.1 cm/sec PA Accel Time: 0.08 sec E/E' lat: 11.4 E/e' average: 14.2 MV P1/2t: 84.5 msec MV P1/2t max sagar: 68.6 cm/sec SV(LVOT): 96.3 ml MVA(P1/2t): 2.6 cm2 Electronically signed by: Anaid Fonseca M.D. on Reading Physician:05/29/2020 04:05 PM
--- NOTE | 2020-05-29 | DI.CT.S_ITS ---
PROCEDURE: CT CHEST W CON INDICATIONS: PULMONARY EMBOLISM,LUNG NODULE TECHNIQUE: After the administration of intravenous contrast, 5 mm thick sections acquired from the pulmonary apices to the posterior costophrenic angles. 1 mm axial lung, 5 mm thick coronal and sagittal reformats and 7 mm axial MIP were acquired. For radiation dose reduction, the following was used: automated exposure control, adjustment of mA and/or kV according to patient size. COMPARISON: [facility], CT, CT ANGIO CHEST PE PROTOCOL, 04/02/2020, 18:05. FINDINGS: Image quality: Excellent. Lungs and pleura: There is an irregular ground-glass opacity in the subpleural anterior right upper lobe persists, and has increased in size compared to the prior study measuring approximately 1.6 cm in largest diameter, about 1.1 cm measured in the same direction. Additionally, there has been development of a new left posterior apical subpleural ground-glass opacity measuring 1.5 cm both findings are superimposed on scattered mild subpleural reticulation in the upper lobes and occasional tiny patches of parenchymal ground-glass opacity also mainly in the upper lobes. A subpleural cyst is seen in the posteromedial right costophrenic sulcus. No other acute airspace opacities. No pleural effusions or pneumothorax. Central and peripheral airways are patent and normal in caliber. Mediastinum: The exam was not optimized to detect pulmonary embolus, but nonetheless, linear, lace-like filling defects are evident in right and left lower lobar pulmonary artery origins, but are nonocclusive. Left upper lobar pulmonary artery remains occluded. Heart size is stable, mildly enlarged. There is less septal bowing compared to the prior study. Main pulmonary artery outflow tract is dilated at 4.2 cm in transverse diameter. Trace coronary artery calcification. Mild aortic arch calcification. The aortic caliber is normal. Esophagus is normal in caliber. No hiatal hernia. There is no mediastinal or hilar adenopathy. Bones and chest wall: There are surgical clips and a peripherally calcified sub dermal nodule in the left axilla. No suspicious bony lesions. No vertebral body compression fractures. No axillary or supraclavicular adenopathy by size criteria. Thyroid gland is normal . Abdomen: Visualized upper abdominal solid organs demonstrate partially imaged liver and kidney cysts. No free air. IMPRESSION: 1. Persistent, increased size of right upper lobe ground-glass nodule, and development of new left posterior apical ground-glass nodule. Given the patient's recent history of extensive pulmonary emboli, these are most likely sequelae of ischemia and may likely resolve. However, differential diagnosis includes infectious or inflammatory causes, or an indolent neoplasm and one year follow-up is recommended. 2. Resolution of a large portion of occlusive pulmonary emboli with persistent occlusion of the left upper lobe pulmonary artery. 3. Persistent dilatation of the main pulmonary artery outflow tract with evidence of less heart strain. Dictated by: Anai Patel M.D. on 05/29/2020 at 9:04 Approved by: Anai Patel M.D. on 05/29/2020 at 10:13
== END ==
PROVIDERS: PCP Physician Assistant Medical; Referring Provider Physician Assistant Medical; Visit Provider Physician Assistant Medical
DX: I26.99 Other pulmonary embolism without acute cor pulmonale (principal); I28.1 Aneurysm of pulmonary artery; R91.8 Other nonspecific abnormal finding of lung field; I70.0 Atherosclerosis of aorta; N28.1 Cyst of kidney, acquired
CPT/HCPCS: 71260; 93306; Q9967

== ENCOUNTER → 2021-02-09 15:44 | Outpatient (CLI) | payer MEDICARE, BC, SELFPAY ==
--- NOTE | 2021-02-09 15:45 | DI.ECHO.S_ITS ---
[facility]---------[facility] +---------+ : : [address] [place] : : : : [id number] : : : : Phone: [phone] : : [phone]+ Echocardiogram Report + + :Name: TORI HEREDIA Study Date: 02/09/2021 Height: 66 in : :[facility] ReadingLocation: Weight: 165 lb : : Gender: Female BSA: 1.8 m2 : :: 1940 Age: 80 yrs BP: 163/99 mmHg: :Reason For Study: DYSPNEA : :Ordering Physician: CHEMA, : :APRYL Performed By: Nicole Maldonado : :Referring: APRYL BEAR : + + Interpretation Summary There is mild-moderate concentric left ventricular hypertrophy. The ejection fraction is estimated to be 65-70%. LV ejection fraction has not changed. Diastolic parameters suggest a relaxation abnormality of the left ventricle, consistent with probable normal filling pressures. The right ventricle is mildly dilated. The right ventricular systolic function is normal. The right ventricular systolic pressure is estimated to be at least 71 mmHg based on an estimated right atrial pressure of 3 mm Hg. RV systolic pressures not significantly changed since prior study. The interventricular septum is flattened, consistent with a right ventricular pressure overload condition. The left atrial size is normal. The right atrium is mildly dilated. There is mild mitral regurgitation. There is mild to moderate tricuspid regurgitation. There is no other significant valvular heart disease. The ascending aorta is mild-moderately enlarged. Procedure: A two-dimensional transthoracic echocardiogram with color flow and Doppler was performed. The study quality was technically adequate. Comparison is made with the echocardiogram of 05/29/2020. The patient was in sinus rhythm with heart rates between 59-66 bpm during the exam. Left Ventricle: The left ventricle is normal in size. There is mild-moderate concentric left ventricular hypertrophy. Left ventricular systolic function appears normal without focal wall motion abnormalities. The ejection fraction is estimated to be 65-70%. The interventricular septum is flattened, consistent with a right ventricular pressure overload condition. Diastolic parameters suggest a relaxation abnormality of the left ventricle, consistent with probable normal filling pressures. Right Ventricle: The right ventricle is mildly dilated. The right ventricular systolic function is normal. Atria: The left atrial size is normal. The right atrium is mildly dilated. There is no Doppler evidence for an interatrial shunt. Mitral Valve: The mitral valve leaflets appear mildly thickened, but open well. There is mild mitral regurgitation. Aortic Valve: The aortic valve is trileaflet. The aortic valve opens well. There is no aortic valve stenosis. No aortic regurgitation is present. Tricuspid Valve: The tricuspid valve is normal in structure and function. There is mild to moderate tricuspid regurgitation. There is severe pulmonary hypertension. The right ventricular systolic pressure is estimated to be at least 71 mmHg based on an estimated right atrial pressure of 3 mm Hg. Pulmonic Valve: The pulmonic valve leaflets are thin and pliable; valve motion is normal. There is no pulmonic valvular regurgitation. There is no other significant valvular heart disease. Great Vessels: The aortic root is normal size. The ascending aorta is mild- moderately enlarged. The IVC is of normal diameter and collapses greater than 50% with a sniff. This suggests a low right atrial pressure of 3 mm Hg. Pericardium/ Pleura There is no pericardial effusion. There is no pleural effusion. MMode/2D Measurements & Calculations LVIDd: 4.5 cm LVOT diam: 2.1 cm LVIDs: 3.0 cm Ao root diam: 3.5 cm FS: 34.3 % asc Aorta Diam: 4.0 cm EPSS: 0.83 cm Ao Arch Diam (Prox Trans): 2.7 cm IVSd: 1.2 cm LVPWd: 0.96 cm LV castañeda. diameter/BSA (cm/m^2): 2.4 LV sys. diameter/BSA (cm/m^2): 1.6 LA A2 area: 19.6 cm2 RA long axis: 5.9 cm LA A4 area: 17.1 cm2 RA area: 20.2 cm2 LA length (vol): 5.8 cm RA vol: 59.0 ml LA vol: 48.9 ml RA : 32.0 ml/m2 LA vol index: 26.5 ml/m2 IVC diam: 1.5 cm RVD1 (basal): 4.0 cm TAPSE: 2.0 cm Doppler Measurements & Calculations Ao V2 max: 117.5 cm/sec LVOT Max Sagar: 95.8 cm/sec Ao V2 mean: 75.8 cm/sec LV V1 max P.7 mmHg Ao max P.5 mmHg LV V1 VTI: 24.0 cm Ao mean P.7 mmHg ALISHA(I,D): 3.4 cm2 Ao V2 VTI: 25.1 cm ALISHA(V,D): 2.9 cm2 sev ratio: 0.96 ALISHA indexed to BSA (cm^2/m^2): 1.9 MV E max sagar: 58.7 cm/sec TR max sagar: 411.1 cm/sec MV A max sagar: 117.6 cm/sec TR max P.0 mmHg MV E/A: 0.50 PA pr(Accel): 49.9 mmHg Med Peak E' Sagar: 6.2 cm/sec E/E' med: 9.4 Lat Peak E' Sagar: 3.9 cm/sec E/E' lat: 15.1 E/e' average: 12.2 MV dec time: 0.27 sec SV(LVOT): 86.2 ml Reading Physician:05:46 PM
== END ==
PROVIDERS: PCP Physician Assistant Medical; Referring Provider Physician Assistant Medical; Visit Provider Physician Assistant Medical
DX: I08.1 Rheumatic disorders of both mitral and tricuspid valves (principal); I77.89 Other specified disorders of arteries and arterioles; R06.09 Other forms of dyspnea
CPT/HCPCS: 93306

== ENCOUNTER → 2021-03-17 11:34 | Outpatient (CLI) | payer MEDICARE, BC, SELFPAY ==
[2021-03-17 13:41] LABS: COVID19 -Nasal RAPID Negative (Negative)
== END ==
PROVIDERS: PCP Physician Assistant Medical; Visit Provider Physician Assistant
DX: Z01.812 Encounter for preprocedural laboratory examination (principal); Z20.822 Contact with and (suspected) exposure to COVID-19
CPT/HCPCS: 87635; C9803

== ENCOUNTER → 2021-03-19 07:30 | Outpatient (CLI) | payer MEDICARE, OTHER, SELFPAY ==
--- NOTE | 2021-03-19 | DI.NM.S_ITS ---
PROCEDURE: NM MIKE PERF SPECT R&S PHARM Rest and pharmacological stress myocardial perfusion SPECT with gated imaging and ejection fraction RADIOPHARMACEUTICAL: 11.7 mCi Tc-99m tetrafosmin IV at rest and 26.8 mCi Tc-99m tetrafosmin IV at peak effect of pharmacological stress. [id number] was performed. INDICATIONS: Chest pain, unspecified TECHNIQUE: Radiopharmaceutical was injected at peak stress test, and also at rest. SPECT images were obtained. SPECT myocardial perfusion images were displayed in short axis, horizontal long axis, and vertical long axis views. Gated images were reviewed using [employer] software. COMPARISON: None. CARDIAC STRESS: A pharmacologic stress test was performed under the supervision of an attending staff, using an infusion of lexiscan 0.4mg IV X1. The study was switched from treadmill after 3 minutes due to fatigue and dyspnea. Hemodynamic data: There is normal blood pressure and heart rate response to pharmacologic stress. Symptoms: The patient denied anginal chest pain. Aminophylline: none EKG: No diagnostic changes of ischemia; no ectopy. FINDINGS: Raw data: There is good myocardial uptake of radiotracer. No significant motion artifacts. Left ventricle function: Gated images demonstrate normal left ventricular wall thickening. No segmental wall motion abnormalities. No transient ischemic dilation Myocardial perfusion: There is normal distribution of activity in the right and left ventricular myocardium. No fixed or reversible perfusion defects. IMPRESSION: Low risk, normal pharmaceutical nuclear stress test 1) No perfusion evidence of ischemia or infarction. 2) Normal left ventricular size, wall motion, and systolic function. 3) No diagnostic ECG evidence of ischemia. Baseline borderline ST depressions in the inferior leads that slightly worsen with exercise/lexiscan. 4) No angina during the study. 5) Reduced exercise tolerance (4.6 METs, SHAMAR +38%). Study switched to lexiscan due to dyspnea and fatigue. 6) No prior nuclear stress test available for comparison. Dictated by: Maribel Canela MD on 03/22/2021 at 9:26 Approved by: Maribel Canela MD on 03/22/2021 at 9:30
== END ==
PROVIDERS: PCP Physician Assistant Medical; Referring Provider Physician Assistant Medical; Visit Provider Physician Assistant Medical
DX: R07.9 Chest pain, unspecified (principal)
CPT/HCPCS: 78452; 93017; A9502; J2785

== ENCOUNTER → 2021-05-07 10:05 | Outpatient (CLI) | payer MEDICARE, OTHER, SELFPAY ==
--- NOTE | 2021-05-07 | DI.MG.S_ITS ---
BILATERAL DIGITAL SCREENING MAMMOGRAM 3D/2D WITH CAD: 05/07/2021 CLINICAL: Routine screening. Personal history of left breast cancer. Family history of breast cancer. Comparison is made to exams dated: 05/01/2020 mammogram, 03/13/2019 mammogram, and 03/12/2018 mammogram - . The tissue of both breasts is heterogeneously dense. This may lower the sensitivity of mammography. Current study was also evaluated with a Computer Aided Detection (CAD) system. There are benign calcifications in both breasts. There also are benign post operative findings in the left breast. No significant masses, calcifications, or other findings are seen in either breast. There has been no significant interval change. IMPRESSION: BENIGN There is no mammographic evidence of malignancy. A 1 year screening mammogram is recommended. This exam was interpreted at Station ID: [id number]. NOTE: For mammograms, a report in lay terms will be sent to the patient. Approximately 15% of breast malignancies will not be visualized mammographically. In the management of a palpable breast mass, a negative mammogram must not discourage biopsy of a clinically suspicious lesion. Electronically Signed By: Aden alberto/thuy:05/07/2021 10:47:38 letter sent: Normal Exam ACR BI-RADS Category 2: Benign Finding(s) 3342F
== END ==
PROVIDERS: PCP Physician Assistant Medical; Referring Provider Physician Assistant Medical; Visit Provider Physician Assistant Medical
DX: Z12.31 Encounter for screening mammogram for malignant neoplasm of breast (principal); Z85.3 Personal history of malignant neoplasm of breast; Z80.3 Family history of malignant neoplasm of breast
CPT/HCPCS: 77063; 77067

== ENCOUNTER → 2022-05-11 10:07 | Outpatient (CLI) | payer MEDICARE, SELFPAY ==
--- NOTE | 2022-05-11 | DI.MG.S_ITS ---
BILATERAL DIGITAL SCREENING MAMMOGRAM 3D/2D WITH CAD: 05/11/2022 CLINICAL: Routine screening. Personal history of left breast cancer. Family history of breast cancer. Comparison is made to exams dated: 05/07/2021 mammogram, 05/01/2020 mammogram, 03/13/2019 mammogram, and 03/12/2018 mammogram - [facility]. There are scattered areas of fibroglandular density in both breasts (category b / 25%-50% glandular tissue). Current study was also evaluated with a Computer Aided Detection (CAD) system. There are benign calcifications in both breasts. There also are benign post operative findings in the left breast. No significant masses, calcifications, or other findings are seen in either breast. There has been no significant interval change. IMPRESSION: BENIGN There is no mammographic evidence of malignancy. A 1 year screening mammogram is recommended. This exam was interpreted at Station ID: [id number]. NOTE: For mammograms, a report in lay terms will be sent to the patient. Approximately 15% of breast malignancies will not be visualized mammographically. In the management of a palpable breast mass, a negative mammogram must not discourage biopsy of a clinically suspicious lesion. Electronically Signed By: Anai sanchez/thuy:05/11/2022 13:08:33 letter sent: Normal Exam ACR BI-RADS Category 2: Benign Finding(s) 3342F
== END ==
PROVIDERS: PCP Physician Assistant Medical; Referring Provider Physician Assistant Medical; Visit Provider Physician Assistant Medical
DX: Z12.31 Encounter for screening mammogram for malignant neoplasm of breast (principal); Z85.3 Personal history of malignant neoplasm of breast; Z80.3 Family history of malignant neoplasm of breast
CPT/HCPCS: 77063; 77067

== ENCOUNTER → 2023-05-12 09:36 | Outpatient (CLI) | payer MEDICARE, SELFPAY ==
--- NOTE | 2023-05-12 | DI.MG.S_ITS ---
BILATERAL DIGITAL SCREENING MAMMOGRAM 3D/2D WITH CAD: 05/12/2023 CLINICAL: Routine screening. Personal history of left breast cancer. Family history of breast cancer. Comparison is made to exams dated: 05/11/2022 mammogram, 05/07/2021 mammogram, and 05/01/2020 mammogram - [facility]. There are scattered areas of fibroglandular density in both breasts (category b / 25%-50% glandular tissue). Current study was also evaluated with a Computer Aided Detection (CAD) system. There are benign calcifications in both breasts. There also are benign post operative findings in the left breast. No significant masses, calcifications, or other findings are seen in either breast. There has been no significant interval change. IMPRESSION: BENIGN There is no mammographic evidence of malignancy. A 1 year screening mammogram is recommended. This exam was interpreted at Station ID: [id number]. NOTE: For mammograms, a report in lay terms will be sent to the patient. Approximately 15% of breast malignancies will not be visualized mammographically. In the management of a palpable breast mass, a negative mammogram must not discourage biopsy of a clinically suspicious lesion. Electronically Signed By: Ramsey das/thuy:05/12/2023 15:02:55 letter sent: Normal Exam ACR BI-RADS Category 2: Benign Finding(s) 3342F
== END ==
PROVIDERS: PCP Physician Assistant Medical; Referring Provider Physician Assistant Medical; Visit Provider Physician Assistant Medical
DX: Z12.31 Encounter for screening mammogram for malignant neoplasm of breast (principal); Z85.3 Personal history of malignant neoplasm of breast; Z80.3 Family history of malignant neoplasm of breast
CPT/HCPCS: 77063; 77067

== ENCOUNTER → 2024-05-17 10:43 | Outpatient (CLI) | payer MEDICARE, SELFPAY ==
--- NOTE | 2024-05-17 10:45 | DI.MG.S_ITS ---
BILATERAL DIGITAL SCREENING MAMMOGRAM 3D/2D WITH CAD: 05/17/2024 CLINICAL: Routine screening. Personal history of left breast cancer. Family history. Comparison is made to exams dated: 05/12/2023 mammogram, 05/11/2022 mammogram, and 05/07/2021 mammogram - [facility]. The breasts are heterogeneously dense, which may obscure small masses (category c / 51-75% glandular tissue). Current study was also evaluated with a Computer Aided Detection (CAD) system. There are benign calcifications in both breasts. There also are benign post operative findings in the left breast. No significant masses, calcifications, or other findings are seen in either breast. There has been no significant interval change. IMPRESSION: BENIGN There is no mammographic evidence of malignancy. A 1 year screening mammogram is recommended. This exam was interpreted at Station ID: [id number]. NOTE: For mammograms, a report in lay terms will be sent to the patient. Approximately 15% of breast malignancies will not be visualized mammographically. In the management of a palpable breast mass, a negative mammogram must not discourage biopsy of a clinically suspicious lesion. Electronically Signed By: Gilberto [email or web address]/[email or web address]:05/17/2024 13:55:14 letter sent: Normal Exam ACR BI-RADS Category 2: Benign
== END ==
LOC: MAMMO 10:45
PROVIDERS: PCP Physician Assistant Medical; Referring Provider Physician Assistant Medical; Visit Provider Physician Assistant Medical
DX: Z12.31 Encounter for screening mammogram for malignant neoplasm of breast (principal); Z85.3 Personal history of malignant neoplasm of breast; Z80.3 Family history of malignant neoplasm of breast; R92.333 Mammographic heterogeneous density, bilateral breasts
CPT/HCPCS: 77063; 77067

== ENCOUNTER → 2025-05-19 11:22 | Outpatient (CLI) | payer MEDICARE, SELFPAY ==
--- NOTE | 2025-05-19 11:25 | DI.MG.S_ITS ---
MM screening mammo BI: 05/19/2025. BI-RADS: 2 CLINICAL: 84-year old female for bilateral screening mammogram. No Tyrer-Cuzick risk score calculation due to the patient's personal history of breast cancer. Patient reports a history of left breast carcinoma diagnosed at age 66. Status-post left lumpectomy with chemotherapy and hormonal therapy. Current reported family history of breast cancer: sister. The patient had a prior left breast biopsy. PRIOR EXAMS: 05/17/2024, 05/12/2023, 05/11/2022, 05/07/2021, 05/01/2020, 03/13/2019, 03/12/2018, 03/09/2017. MAMMOGRAPHY TECHNIQUE: 2D and 3D (tomosynthesis) digital mammographic views obtained, with additional images as needed for full coverage. Current study was also evaluated with a Computer Aided Detection (CAD) system. DENSITY C. The breasts are heterogeneously dense, which may obscure small masses. MAMMOGRAPHY FINDINGS Right: No suspicious mass, asymmetry, microcalcification, or other abnormality seen. Left: Benign-appearing post-surgical changes noted on the left. There are no suspicious masses, calcifications, or other findings in the breast. IMPRESSION: Right * No evidence of malignancy. Left * No evidence of malignancy with benign findings. RECOMMENDATIONS Bilateral * Annual screening mammography. OVERALL ASSESSMENT CATEGORY BI-RADS-2: Benign. [employer] recommends annual screening mammography beginning at age 40 for women with average risk of breast cancer. ELECTRONICALLY SIGNED: Carley Martínez M.D. on 05/19/2025 at 09:43:58 PM PT Interpreting Station ID: [id number]
== END ==
LOC: MAMMO 11:24
PROVIDERS: PCP Physician Assistant Medical; Referring Provider Physician Assistant Medical; Visit Provider Physician Assistant Medical
DX: Z12.31 Encounter for screening mammogram for malignant neoplasm of breast (principal); Z85.3 Personal history of malignant neoplasm of breast; Z80.3 Family history of malignant neoplasm of breast; R92.333 Mammographic heterogeneous density, bilateral breasts
CPT/HCPCS: 77063; 77067